=== PATIENT | female | born 1995 | race Caucasian/White ===

== ENCOUNTER 2023-09-08 06:07 | Day surgery (SDC) | payer OTHER ==
[2023-09-08] VITALS (10 sets, daily range): BP systolic 105–130; BP diastolic 46–82; PULSE 56–74; RESP 8–16; TEMP 97.8; O2SAT 97–100
[~2023-09-08] VITALS: Ht 160 cm; Wt 82.9 kg
[~2023-09-08 06:07] MED LIST: cefazolin 2gm/D5W 100mL 100 ML IV ONE; famotidine 20mg tablet PO ONE; oxymetazoline 15 ML nasal spray NS ONE; ringers solution, lacted 1,000 ML IV SCH
[2023-09-08 06:45] LABS: PREOP URINE HCG NEGATIVE (NEGATIVE)
[2023-09-08] MEDS ORDERED: lidocaine 1%/epinephrine 1:100,000 inj. 50ml multi-dose vial IJ ONE (07:00)
[2023-09-08] MEDS ORDERED: cocaine 4% topical solution 4ml bottle TP ONE (07:00)
[2023-09-08] MEDS ORDERED: mupirocin 2% cream 15gm TP ONE (07:00)
[2023-09-08] MEDS ORDERED: oxymetazoline 15 ML nasal spray NS ONE ×2 (07:00→07:20)
[2023-09-08] MEDS ORDERED: LIDOcaine 1% w/EPI 1:100,000 inj. MDV 50 ML VIAL ONE (07:20)
[2023-09-08] MEDS ORDERED: tranexamic acid 100mg/ml inj. ONE (07:20)
[2023-09-08] MEDS ORDERED: epiNEPHrine 1 mg/ml 30ml MDV ONE (07:20)
[2023-09-08] MEDS ORDERED: mupirocin 2% ointment 22GM ONE (07:20)
[2023-09-08] MEDS ORDERED: fentaNYL/PF 50MCG/1 ML 2ML syringe ONE (08:09)
[2023-09-08] MEDS ORDERED: midazolam 1 mg/ML 2ml injection ONE (08:10)
[2023-09-08] MEDS ORDERED: propofol inj 20 ML IV ONE (08:24)
[2023-09-08] MEDS ORDERED: LIDOcaine 2% (20mg/ml) 5ml vial ONE (08:24)
[2023-09-08] MEDS ORDERED: dexamethasone sod phosphate 4mg/ml inj. ONE (08:24)
[2023-09-08] MEDS ORDERED: ondansetron/PF 4mg/2ml inj ONE (08:25)
[2023-09-08] MEDS ORDERED: meperidine/PF 25mg/ml syringe IV PRN ×3 (08:35)
[2023-09-08] MEDS ORDERED: morphine 4 MG/ML inj SYRINge IV PRN (08:35)
[2023-09-08] MEDS ORDERED: morphine 2 MG/ML inj. syringe IV PRN (08:35)
[2023-09-08] MEDS ORDERED: ondansetron/PF 4mg/2ml inj IV PRN (08:35)
[2023-09-08] MEDS ORDERED: ringers solution, lacted 1,000 ML IV SCH (08:35)
[2023-09-08] MEDS ORDERED: proCHLORperazine 10 MG/2 ml inj IV PRN (08:35)
[2023-09-08] MEDS ORDERED: labetalol 20mg/4ml (5mg/ml) syringe IV PRN (08:35)
[2023-09-08] MEDS ORDERED: enalaprilat dihydrate 2.5mg/2ml vial IV PRN (08:35)
[2023-09-08] MEDS ORDERED: meperidine/PF 25mg/ml syringe ONE (08:58)
[2023-09-08] MEDS ORDERED: cocaine 4% topical solution 4ml bottle ONE (09:20)
[2023-09-08] MEDS ORDERED: oxymetazoline 15 ML nasal spray NS PRN (09:55)
[2023-09-08] MEDS ORDERED: salt irrigation nasal spray 45 ML SPRAY NS PRN (10:15)
== END 2023-09-08 10:56 | disposition home or self-care (01) ==
LOC: PAS 06:07
PROVIDERS: ATTEND Otolaryngology
DX: J34.2 Deviated nasal septum (principal); J34.3 Hypertrophy of nasal turbinates; E66.9 Obesity, unspecified; Z68.32 Body mass index [BMI] 32.0-32.9, adult; J45.990 Exercise induced bronchospasm; Z98.818 Other dental procedure status; Z79.899 Other long term (current) drug therapy
CPT/HCPCS: 30140; 30520; 81025; 82948; A6402; J0171; J0690; J1100; J2175; J2250; J2405; J2704; J3010; J3490; J7030; J7120; Z7506; Z7508; Z7512; A4618; A7000